=== PATIENT | male | born 1940 | race Caucasian/White ===

== ENCOUNTER 2023-09-29 09:36 | Inpatient (IN) | payer MEDICARE, MEDICAID ==
[~2023-09-29] VITALS: Ht 170.2 cm; Wt 95.0 kg
[~2023-09-29 09:36] MED LIST: ASPI-1265 PO; ATOR20TA66 PO; BUSP10TA3 PO; CLOP75TA34 PO; FLO0.4C PO; GLIP10TA11 PO; HYDR-3964 PO; INSU100I31 SQ; LOSA100T58 PO; METF-1203 PO; METH-806 PO; METO-384 PO; PANT40TA54 PO; PREG100C56 PO; SITA100T15 PO; TRIA1TAB3 PO
[2023-09-29] MEDS ORDERED: iohexol 350MG/ML 100ml bottle IV ONE (09:59)
[2023-09-29 10:09] LABS: BASOPHILS % (AUTO) 0.5 % (0-1); EOSINOPHILS # (AUTO) 0.2 X10'3 (0-0.9); EOSINOPHILS % (AUTO) 2.5 % (0-6); HEMATOCRIT 37.7 % (42.0-52.0); LYMPHOCYTES # (AUTO) 2.1 X10'3 (1.1-4.8); LYMPHOCYTES % (AUTO) 27.1 % (21-51); MEAN CORPUSCULAR HEMOGLOBIN 24.8 PG (27.0-31.0); MEAN CORPUSCULAR HGB CONC 31.8 g/dL (33.0-36.5); MEAN PLATELET VOLUME 8.3 FL (7.4-10.4); MONOCYTES # (AUTO) 0.7 X10'3 (0-0.9); MONOCYTES % (AUTO) 8.7 % (2-12); NEUTROPHILS # (AUTO) 4.7 X10'3 (1.8-7.7); NEUTROPHILS % (AUTO) 61.2 % (42-75); PLATELET COUNT 195 X10'3 (140-440); RED BLOOD COUNT 4.83 X10'6 (4.70-6.10); RED CELL DISTRIBUTION WIDTH 16.7 % (11.5-14.5); WHITE BLOOD COUNT 7.6 X10'3 (4.5-11.0)
[2023-09-29 10:19] LABS: APTT 25 SECONDS (22-32); PROTHROMBIN TIME 10.6 SECONDS (9.0-12.0)
[2023-09-29 10:25] LABS: ALBUMIN 3.6 G/DL (3.4-5.0); ANION GAP 10 (8-16); BLOOD UREA NITROGEN 40 MG/DL (7-18); BUN/CREATININE RATIO 21.1 (10.0-20.0); CALCIUM 10.4 MG/DL (8.5-10.1); CHLORIDE 103 MMOL/L (99-107); GLUCOSE 175 MG/DL (70-104); POTASSIUM 4.2 MMOL/L (3.5-5.1); SODIUM 139 MMOL/L (135-145); TOTAL CARBON DIOXIDE 25.8 MMOL/L (24-32); eGFR 34 ML/MIN
[2023-09-29] MEDS: morphine 4 MG/ML inj SYRINge IV ONE (11:02)
[2023-09-29] MEDS: ondansetron/PF 4mg/2ml inj IV ONE ×2 (11:14→12:38)
[2023-09-29] MEDS: normal saline 1000ml 1,000 ML IV ONE (12:38)
[2023-09-29] MEDS: aspirin 325mg tablet PO ONE (12:38)
[2023-09-29] MEDS: normal saline 1000ml 1,000 ML IV SCH (14:19)
[2023-09-29] MEDS ORDERED: DULA1.5P SQ (14:27)
[2023-09-29] MEDS ORDERED: dextrose 50%-water 50ml dispensing syringe IV PRN ×2 (14:40)
[2023-09-29] MEDS ORDERED: glucagon, human recombinant 1mg kit SUBCUT PRN (14:40)
[2023-09-29] MEDS ORDERED: DEXTROSE 15 GM of carb/4 tabs (each vial/BOTTLE has 4 tablets) PO PRN ×2 (14:40)
[2023-09-29] MEDS: methadone 5mg tablet PO SCH (17:15)
[2023-09-29] MEDS: INSULIN LISPRO 100 UNIT/ML INSULN.PEN MULTI-DOSE SQ SCH ×2 (17:55→19:42)
[2023-09-29 20:00] VITALS: RESP 12; O2SAT 93
[2023-09-29 20:30] VITALS: BP 152/75; PULSE 70; RESP 12; TEMP 96.6; O2SAT 93
[2023-09-29] MEDS: busPIRone 5mg tablet PO SCH (21:03)
[2023-09-29] MEDS: pregabalin 25mg capsule PO SCH (21:04)
[2023-09-29 22:00] VITALS: BP 144/75; PULSE 72; RESP 12; TEMP 97.9; O2SAT 97
[2023-09-29] MEDS: HYDROcodone/acetaminophen 5mg/325mg tablet PO PRN (23:17)
[2023-09-30 06:00] VITALS: BP 137/59; PULSE 77; RESP 16; TEMP 97.1; O2SAT 96
[2023-09-30] MEDS: clopidogrel 75mg tablet PO SCH (09:06)
[2023-09-30] MEDS: aspirin 81mg tab.chew PO SCH (09:06)
[2023-09-30] MEDS: pantoprazole 40mg Tablet.DR PO SCH (09:06)
[2023-09-30] MEDS: atorvastatin 20mg tablet PO SCH (09:06)
[2023-09-30] MEDS: tamsulosin 0.4mg capsule PO SCH (09:06)
[2023-09-30 10:00] VITALS: BP 138/71; PULSE 70; RESP 18; TEMP 97.3; O2SAT 96
[2023-09-30 14:39] LABS: BASOPHILS % (AUTO) 0.6 % (0-1); EOSINOPHILS # (AUTO) 0.2 X10'3 (0-0.9); HEMATOCRIT 34.9 % (42.0-52.0); HEMOGLOBIN 11.3 g/dl (14.0-17.9); LYMPHOCYTES # (AUTO) 1.5 X10'3 (1.1-4.8); LYMPHOCYTES % (AUTO) 19.4 % (21-51); MEAN CORPUSCULAR HEMOGLOBIN 25.3 PG (27.0-31.0); MEAN CORPUSCULAR HGB CONC 32.5 g/dL (33.0-36.5); MEAN CORPUSCULAR VOLUME 77.9 FL (78-98); MEAN PLATELET VOLUME 8.1 FL (7.4-10.4); MONOCYTES # (AUTO) 0.6 X10'3 (0-0.9); MONOCYTES % (AUTO) 7.1 % (2-12); NEUTROPHILS # (AUTO) 5.6 X10'3 (1.8-7.7); NEUTROPHILS % (AUTO) 69.9 % (42-75); PLATELET COUNT 181 X10'3 (140-440); RED BLOOD COUNT 4.48 X10'6 (4.70-6.10); RED CELL DISTRIBUTION WIDTH 16.3 % (11.5-14.5)
[2023-09-30 15:08] LABS: ALANINE AMINOTRANSFERASE 28 U/L (12-78); ALBUMIN 3.1 G/DL (3.4-5.0); ALBUMIN/GLOBULIN RATIO 0.8 (1.1-1.5); ALKALINE PHOSPHATASE 102 IU/L (46-116); ANION GAP 7 (8-16); ASPARTATE AMINO TRANSFERASE 22 U/L (10-37); BILIRUBIN,TOTAL 0.3 MG/DL (0.1-1.0); BLOOD UREA NITROGEN 25 MG/DL (7-18); BUN/CREATININE RATIO 20.8 (10.0-20.0); CALCIUM 9.5 MG/DL (8.5-10.1); CHLORIDE 103 MMOL/L (99-107); CHOL/HDL RATIO 2.4 (0.00-4.99); CHOLESTEROL 122 MG/DL (0-200); GLUCOSE 177 MG/DL (70-104); HDL CHOLESTEROL 50 MG/DL (35-60); LDL CHOLESTEROL 54 MG/DL (50-100); POTASSIUM 4.2 MMOL/L (3.5-5.1); SODIUM 139 MMOL/L (135-145); TOTAL CARBON DIOXIDE 28.9 MMOL/L (24-32); TOTAL PROTEIN 7.1 G/DL (6.4-8.2); TRIGLYCERIDES 152 MG/DL (20-135); eCRCL 45 ML/MIN; eGFR 58 ML/MIN
[2023-09-30 18:00] VITALS: BP 144/66; PULSE 71; RESP 16; TEMP 97.2; O2SAT 98
[2023-09-30 22:00] VITALS: BP 141/65; PULSE 73; RESP 16; TEMP 97.7; O2SAT 95
[2023-10-01 02:00] VITALS: BP 140/49; PULSE 76; RESP 18; TEMP 98.7; O2SAT 97
[2023-10-01 06:00] VITALS: BP 136/61; PULSE 89; RESP 14; TEMP 97.7; O2SAT 96
[2023-10-01 07:45] LABS: BASOPHILS % (AUTO) 0.4 % (0-1); EOSINOPHILS # (AUTO) 0.3 X10'3 (0-0.9); EOSINOPHILS % (AUTO) 3.6 % (0-6); HEMATOCRIT 34.4 % (42.0-52.0); HEMOGLOBIN 11.1 g/dl (14.0-17.9); LYMPHOCYTES # (AUTO) 1.8 X10'3 (1.1-4.8); LYMPHOCYTES % (AUTO) 22.4 % (21-51); MEAN CORPUSCULAR HEMOGLOBIN 25.2 PG (27.0-31.0); MEAN CORPUSCULAR HGB CONC 32.4 g/dL (33.0-36.5); MEAN CORPUSCULAR VOLUME 77.7 FL (78-98); MEAN PLATELET VOLUME 8.2 FL (7.4-10.4); MONOCYTES # (AUTO) 0.7 X10'3 (0-0.9); MONOCYTES % (AUTO) 9.1 % (2-12); NEUTROPHILS # (AUTO) 5.1 X10'3 (1.8-7.7); NEUTROPHILS % (AUTO) 64.5 % (42-75); PLATELET COUNT 159 X10'3 (140-440); RED BLOOD COUNT 4.42 X10'6 (4.70-6.10); RED CELL DISTRIBUTION WIDTH 15.8 % (11.5-14.5); WHITE BLOOD COUNT 7.9 X10'3 (4.5-11.0)
[2023-10-01] MEDS: linagliptin 5mg tablet PO SCH (07:55)
[2023-10-01 08:00] VITALS: RESP 18; O2SAT 92
[2023-10-01 08:23] LABS: ALANINE AMINOTRANSFERASE 26 U/L (12-78); ALBUMIN 3.1 G/DL (3.4-5.0); ALBUMIN/GLOBULIN RATIO 0.8 (1.1-1.5); ALKALINE PHOSPHATASE 100 IU/L (46-116); ANION GAP 5 (8-16); ASPARTATE AMINO TRANSFERASE 23 U/L (10-37); BILIRUBIN,TOTAL 0.4 MG/DL (0.1-1.0); BLOOD UREA NITROGEN 24 MG/DL (7-18); BUN/CREATININE RATIO 22.6 (10.0-20.0); CALCIUM 9.7 MG/DL (8.5-10.1); CHLORIDE 105 MMOL/L (99-107); CREATININE 1.06 MG/DL (0.60-1.10); GLUCOSE 173 MG/DL (70-104); POTASSIUM 4.3 MMOL/L (3.5-5.1); SODIUM 138 MMOL/L (135-145); TOTAL CARBON DIOXIDE 28.1 MMOL/L (24-32); TOTAL PROTEIN 6.9 G/DL (6.4-8.2); eCRCL 51 ML/MIN; eGFR 67 ML/MIN
[2023-10-01 10:00] VITALS: BP 138/47; PULSE 90; RESP 15; TEMP 98.3; O2SAT 92
[2023-10-01 18:00] VITALS: BP 159/77; PULSE 80; RESP 17; TEMP 97.4; O2SAT 91
[2023-10-01 22:00] VITALS: BP 134/73; PULSE 82; RESP 17; TEMP 98.1; O2SAT 95
[2023-10-02 06:00] VITALS: BP 149/75; PULSE 83; RESP 14; TEMP 98.2; O2SAT 93
[2023-10-02 09:04] LABS: BASOPHILS % (AUTO) 0.5 % (0-1); EOSINOPHILS # (AUTO) 0.2 X10'3 (0-0.9); EOSINOPHILS % (AUTO) 2.7 % (0-6); HEMOGLOBIN 12.1 g/dl (14.0-17.9); LYMPHOCYTES # (AUTO) 2.4 X10'3 (1.1-4.8); LYMPHOCYTES % (AUTO) 28.7 % (21-51); MEAN CORPUSCULAR HEMOGLOBIN 25.4 PG (27.0-31.0); MEAN CORPUSCULAR HGB CONC 32.7 g/dL (33.0-36.5); MEAN CORPUSCULAR VOLUME 77.6 FL (78-98); MEAN PLATELET VOLUME 8.4 FL (7.4-10.4); MONOCYTES # (AUTO) 0.7 X10'3 (0-0.9); MONOCYTES % (AUTO) 7.8 % (2-12); NEUTROPHILS % (AUTO) 60.3 % (42-75); PLATELET COUNT 199 X10'3 (140-440); RED BLOOD COUNT 4.77 X10'6 (4.70-6.10); RED CELL DISTRIBUTION WIDTH 16.4 % (11.5-14.5); WHITE BLOOD COUNT 8.3 X10'3 (4.5-11.0)
[2023-10-02 09:26] LABS: ALANINE AMINOTRANSFERASE 27 U/L (12-78); ALBUMIN 3.5 G/DL (3.4-5.0); ALBUMIN/GLOBULIN RATIO 0.8 (1.1-1.5); ALKALINE PHOSPHATASE 117 IU/L (46-116); ANION GAP 9 (8-16); ASPARTATE AMINO TRANSFERASE 20 U/L (10-37); BILIRUBIN,TOTAL 0.4 MG/DL (0.1-1.0); BLOOD UREA NITROGEN 21 MG/DL (7-18); BUN/CREATININE RATIO 17.5 (10.0-20.0); CALCIUM 9.9 MG/DL (8.5-10.1); CHLORIDE 104 MMOL/L (99-107); GLUCOSE 153 MG/DL (70-104); POTASSIUM 4.3 MMOL/L (3.5-5.1); SODIUM 139 MMOL/L (135-145); TOTAL CARBON DIOXIDE 26.2 MMOL/L (24-32); TOTAL PROTEIN 7.7 G/DL (6.4-8.2); eCRCL 45 ML/MIN; eGFR 58 ML/MIN
[2023-10-02 10:00] VITALS: BP 152/77; PULSE 85; RESP 20; TEMP 97.2; O2SAT 90; O2SAT 93
[2023-10-02 18:00] VITALS: BP 166/84; PULSE 91; RESP 14; TEMP 97.2; O2SAT 92
[2023-10-02 20:00] VITALS: RESP 14; O2SAT 92
[2023-10-02 22:00] VITALS: BP 136/56; PULSE 85; RESP 16; TEMP 98.5; O2SAT 92
[2023-10-03 06:28] VITALS: BP 131/70; PULSE 67; RESP 18; TEMP 98.5; O2SAT 96
== END 2023-10-03 07:35 | disposition home or self-care (01) | DRG 64 ==
LOC: ER 09:36 → ED HOLD 13:47 → ORTHO 4S 20:10
PROVIDERS: ADMIT Family Medicine; ATTEND Family Medicine
DX: I63.9 Cerebral infarction, unspecified (principal); N17.0 Acute kidney failure with tubular necrosis; I69.354 Hemiplegia and hemiparesis following cerebral infarction affecting left non-dominant side; I10 Essential (primary) hypertension; E78.5 Hyperlipidemia, unspecified; I25.10 Atherosclerotic heart disease of native coronary artery without angina pectoris; G89.29 Other chronic pain; G47.33 Obstructive sleep apnea (adult) (pediatric); E11.9 Type 2 diabetes mellitus without complications; Z79.82 Long term (current) use of aspirin; Z79.84 Long term (current) use of oral hypoglycemic drugs; Z79.899 Other long term (current) drug therapy; Z79.01 Long term (current) use of anticoagulants; I25.2 Old myocardial infarction; Z79.4 Long term (current) use of insulin; Z85.46 Personal history of malignant neoplasm of prostate; Z92.3 Personal history of irradiation; Z95.1 Presence of aortocoronary bypass graft; Z95.5 Presence of coronary angioplasty implant and graft; Z90.49 Acquired absence of other specified parts of digestive tract
CPT/HCPCS: 36415; 70450; 71045; 80048; 80053; 80061; 82948; 83036; 84484; 85025; 85610; 85730; 87081; 92508; 92616; 93005; 93306; 93880; 96374; 96375; 97116; 97161; 97530; 97535; 99285; A6258; G0378; J1815; J2270; J2405; J3490; J7030; Q9967